=== PATIENT | male | born 1990 | race Caucasian/White ===

== ENCOUNTER 2019-01-26 00:16 | Emergency (ER) | payer OTHER ==
[~2019-01-26] VITALS: Ht 172.7 cm; Wt 84.7 kg
[2019-01-26 00:18] VITALS: Ht 172.7 cm; Wt 84.7 kg
--- NOTE | 2019-01-26 02:57 | ERD ---
ER Documentation Chief Complaint Chief Complaint EPIGASTRIC PAIN AND DIARRHEA X MONDAY HPI 28-year-old male, presents to the emergency department, complaining of epigastric pain, associated with diarrhea for 3 days. No fever, no chills. ROS All systems reviewed and are negative except as per history of present illness. Medications Home Meds Active Scripts Ondansetron (Ondansetron Odt) 4 Mg Tab.rapdis, 4 MG PO Q6H PRN for NAUSEA AND/OR VOMITING, #10 TAB Prov:NABILA RAZO MD 01/26/19 Ranitidine Hcl* (Zantac*) 150 Mg Tablet, 150 MG PO BID PRN for EPIGASTRIC PAIN, #10 TAB Prov:NABILA RAZO MD 01/26/19 Allergies Allergies: Coded Allergies: No Known Allergies (Verified Allergy, Unknown, 01/26/19) Physical Exam Vitals Vital Signs Date Temp Pulse Resp B/P (MAP) Pulse Ox O2 O2 Flow FiO2 Time Delivery Rate 01/26/19 98.6 73 20 156/80 100 00:18 (105) Physical Exam Const: No acute distress Head: Atraumatic Eyes: Normal Conjunctiva ENT: Normal External Ears, Nose and Mouth. Neck: Full range of motion. No meningismus. Resp: Clear to auscultation bilaterally Cardio: Regular rate and rhythm, no murmurs Abd: Soft, non tender, non distended. Normal bowel sounds Skin: No petechiae or rashes Back: No midline or flank tenderness Ext: No cyanosis, or edema Neur: Awake and alert Psych: Normal Mood and Affect Result Diagram: 01/26/19 0326 01/26/19 0326 Results 24 hrs Laboratory Tests Test 01/26/19 03:26 White Blood Count 7.1 10^3/ul Red Blood Count 4.88 10^6/ul Hemoglobin 15.5 g/dl Hematocrit 46.0 % Mean Corpuscular Volume 94.3 fl Mean Corpuscular Hemoglobin 31.8 pg Mean Corpuscular Hemoglobin Concent 33.7 g/dl Red Cell Distribution Width 12.2 % Platelet Count 214 10^3/UL Mean Platelet Volume 10.2 fl Immature Granulocytes % 0.400 % Neutrophils % 67.6 % Lymphocytes % 14.7 % Monocytes % 15.7 % Eosinophils % 0.8 % Basophils % 0.8 % Nucleated Red Blood Cells % 0.0 /100WBC Immature Granulocytes # 0.030 10^3/ul Neutrophils # 4.8 10^3/ul Lymphocytes # 1.0 10^3/ul Monocytes # 1.1 10^3/ul Eosinophils # 0.1 10^3/ul Basophils # 0.1 10^3/ul Nucleated Red Blood Cells # 0.0 10^3/ul Sodium Level 145 mmol/L Potassium Level 4.3 mmol/L Chloride Level 102 mmol/L Carbon Dioxide Level 32 mmol/L Anion Gap 11 Blood Urea Nitrogen 14 mg/dl Creatinine 0.96 mg/dl Est Glomerular Filtrat Rate mL/min > 60 mL/min Glucose Level 99 mg/dl Calcium Level 9.5 mg/dl Total Bilirubin 0.2 mg/dl Direct Bilirubin 0.00 mg/dl Indirect Bilirubin 0.2 mg/dl Aspartate Amino Transf (AST/SGOT) 26 IU/L Alanine Aminotransferase (ALT/SGPT) 30 IU/L Alkaline Phosphatase 50 IU/L Total Protein 7.9 g/dl Albumin 4.4 g/dl Globulin 3.50 g/dl Albumin/Globulin Ratio 1.25 Lipase 67 U/L Current Medications Medications Dose Sig/Brigida Start Time Status Last (Trade) Ordered Route PRN Stop Time Admin Dose Reason Admin Sodium 1,000 ml @ Q1H STAT 01/26/19 DC 01/26/19 Chloride 1,000 mls/hr IV 03:21 03:35 01/26/19 04:20 Ondansetron 4 mg ONCE STAT 01/26/19 DC 01/26/19 HCl (Zofran IV 03:21 03:35 Inj) 01/26/19 03:23 Famotidine 20 mg ONCE STAT 01/26/19 DC 01/26/19 (Pepcid Iv) IV 03:21 03:35 01/26/19 03:23 40 ml ONCE STAT 01/26/19 DC 01/26/19 Miscellaneous PO 03:21 03:35 Medication 01/26/19 03:23 (Gi Cocktail (2)) Procedures/MDM Physical exam unremarkable, patient in no distress, hydrated, adequate oral intake, abdomen, soft, nontender, no peritoneal signs. Differential diagnosis include but not limited to: gastrointestinal infection bacterial/viral, UTI, appendicitis, colitis, food poisoning, food intolerance. Low suspicion for acute abdomen Physical examination and clinical presentation consistent most likely with viral gastroenteritis. During the ED course the patient remained stable, overall improvement of the symptoms after receiving treatment in the emergency department with IV fluids. Clinical impression discussed with the patient who agrees with management. The patient is stable to be discharged home, Some side effects of prescribed med ications (headache, rash, nausea, vomiting, diarrhea, interactions with other medications) were reviewed. The patient requires a follow up with the primary care provider in the next 48h. If symptoms persist, worsen or new symptoms develop, then patient should return to the ED immediately. Disclaimer: Inadvertent spelling and grammatical errors are likely due to EHR/dictation software use and do not reflect on the overall quality of patient care. Also, please note that the electronic time recorded on this note does not necessarily reflect the actual time of the patient encounter. Departure Diagnosis: Primary Impression: Acute gastroenteritis Condition: Stable Additional Instructions: Thank you very much for allowing us to participate in your care. Your health and safety is our top priority at [facility]. Call your primary care doctor TOMORROW for an appointment during the next 2-4 days and bring all the information and medications prescribed. Have prescriptions filled and follow precisely the directions on the label. If the symptoms get worse and your provider is unavailable, return to the Emergency Department immediately. NABILA RAZO MD Jan 26, 2019 02:57
[2019-01-26] MEDS ORDERED: ONDANSETRON 4 MG INJ IV STA (03:21)
[2019-01-26] MEDS ORDERED: LIDOCAINE/MYLANTA 40 ML BTL PO STA (03:21)
[2019-01-26] MEDS ORDERED: FAMOTIDINE 20 MG INJ IV STA (03:21)
[2019-01-26] MEDS ORDERED: SOD CHLORIDE 0.9% 1,000 ML IV STA (03:21)
[2019-01-26] MEDS ORDERED: RANI150T35 PO (05:10)
[2019-01-26] MEDS ORDERED: ONDA4TAB14 PO (05:10)
[2019-01-26 05:28] VITALS: BP 125/74; PULSE 82; RESP 20
== END 2019-01-26 05:29 | disposition home or self-care (01) ==
LOC: FTE 00:16
DX: K52.9 Noninfective gastroenteritis and colitis, unspecified (principal)
CPT/HCPCS: 36415; 80053; 81003; 83690; 85025; 96374; 96375; 99284; J2405; J7030